=== PATIENT | female | born 1985 | race Caucasian/White ===

== ENCOUNTER 2017-04-04 14:50 | Outpatient (CLI) | payer OTHER | END 2017-04-04 16:10 | disposition home or self-care (01) | LOC: OBT 14:50 → L-D 14:50 → OBT 16:10 | DX: O24.419 Gestational diabetes mellitus in pregnancy, unspecified control (principal); Z3A.34 34 weeks gestation of pregnancy | CPT/HCPCS: 76815; 76818; 82962 ==

== ENCOUNTER 2017-04-16 13:34 | Inpatient (IN) | payer OTHER ==
[2017-04-16] MEDS ORDERED: CARBOPROST 250 MCG INJ IM (14:30)
[2017-04-16] MEDS ORDERED: LIDOCAINE 1% (MPF) 30 ML INJ INJ (14:30)
[2017-04-16] MEDS ORDERED: BUTORPHANOL 2 MG INJ IV (14:30)
[2017-04-16] MEDS ORDERED: METHYLERGONOVINE 0.2 MG INJ IM (14:30)
[2017-04-16] MEDS ORDERED: OXYTOCIN 30 UNITS/LR 500 ML IV ×2 (14:30)
[2017-04-16] MEDS ORDERED: MISOPROSTOL 200 MCG TAB PR (14:30)
[2017-04-16 15:19] LABS: ADD MAN DIFF? NO
[2017-04-16 15:24] LABS: BASOPHILS % 0.1 % (0.0-2.0); EOSINOPHILS % 0.1 % (0.0-7.0); HEMATOCRIT 31.7 % (37.0-47.0); HEMOGLOBIN 10.6 g/dl (12.0-16.0); LYMPHOCYTES # 1.7 10^3/ul (0.8-2.9); LYMPHOCYTES % 22.2 % (15.0-51.0); MEAN CORPUSCULAR HEMOGLOBIN 29.2 pg (29.0-33.0); MEAN CORPUSCULAR HGB CONC 33.4 g/dl (32.0-37.0); MEAN CORPUSCULAR VOLUME 87.3 fl (82.0-101.0); MEAN PLATELET VOLUME 11.1 fl (7.4-10.4); MONOCYTE # 0.5 10^3/ul (0.3-0.9); NEUTROPHIL # 5.6 10^3/ul (1.6-7.5); NEUTROPHILS % 71.3 % (39.0-77.0); PLATELET COUNT 157 10^3/UL (140-415); RED BLOOD COUNT 3.63 10^6/ul (4.20-5.40); RED CELL DISTRIBUTION WIDTH 16.3 % (11.5-14.5)
[2017-04-16 15:24] LABS: WHITE BLOOD COUNT 7.9 10^3/ul (4.8-10.8)
[2017-04-16 15:47] LABS: INR 0.96; PROTIME 12.9 Sec (11.9-14.9)
[2017-04-16 15:48] LABS: PARTIAL THROMBOPLASTIN TIME 25.4 Sec (25.0-35.0)
[2017-04-16 15:49] LABS: GLUCOSE 76 mg/dl (70-220)
[2017-04-16] MEDS: LACTATED RINGER'S 1,000 ML IV ×2 (16:15→22:20)
[2017-04-16 16:21] LABS: HEPATITIS B SURFACE ANTIGEN NEGATIVE (NEGATIVE)
[2017-04-16] MEDS: OXYTOCIN 30 UNITS/LR 500 ML IV (17:56)
[2017-04-17] MEDS: LACTATED RINGER'S 1,000 ML IV ×2 (00:50→02:05)
[2017-04-17] MEDS ORDERED: FENTAnyl 2MCG/ML-ROPIV 0.2% 100 ML (01:38)
[2017-04-17] MEDS ORDERED: PHENYLephrine (100 MCG/ML) 5ML SYG (01:39)
[2017-04-17] MEDS ORDERED: EPHEDrine SULFATE 50 MG/5 ML SYG (01:39)
[2017-04-17] MEDS: FENTAnyl 2MCG/ML-ROPIV 0.2% 100 ML BAG EPI ×2 (02:11→09:49)
[2017-04-17] MEDS ORDERED: ONDANSETRON 4 MG INJ IV ×2 (02:30→17:00)
[2017-04-17] MEDS ORDERED: NALOXONE (0.4 MG/ML) INJ IV (02:30)
[2017-04-17] MEDS: EPHEDrine SULFATE 50 MG/5 ML SYG IV (05:47)
[2017-04-17] MEDS: LACTATED RINGER'S 500 ML IV ×3 (06:40→08:14)
[2017-04-17] MEDS ORDERED: SOD CHLORIDE 0.9% 1,000 ML IV (07:48)
[2017-04-17] MEDS: OXYTOCIN 30 UNITS/LR 500 ML IV ×3 (08:41→16:57)
[2017-04-17] MEDS: DEXTROSE 5%-LR 1,000 ML IV (09:01)
[2017-04-17] MEDS: IBUPROFEN 600 MG TAB PO (14:29)
[2017-04-17] MEDS ORDERED: ACETAMINOPHEN 325 MG TAB PO (17:00)
[2017-04-17] MEDS ORDERED: OXYCODONE/ASPIRIN (4.88/325) TAB PO ×2 (17:00)
[2017-04-17] MEDS ORDERED: HYDROCODONE/APAP (5/325) TAB PO ×2 (17:00)
[2017-04-17] MEDS: BENZOCAINE 20% 56 ML SPRAY TOP (17:37)
[2017-04-17] MEDS: WITCH HAZEL/GLYCERIN PAD PR (17:38)
[2017-04-17] MEDS: LANOLIN 7 GM TUBE TOP (17:38)
[2017-04-17 22:35] LABS: RAPID PLASMA REAGIN NONREACTIVE (NR)
[2017-04-18] MEDS: IBUPROFEN 600 MG TAB PO ×4 (00:16→18:02)
[2017-04-18 08:45] LABS: ADD MAN DIFF? NO
[2017-04-18 08:56] LABS: BASOPHILS % 0.2 % (0.0-2.0); EOSINOPHILS % 0.4 % (0.0-7.0); HEMOGLOBIN 9.8 g/dl (12.0-16.0); LYMPHOCYTES # 1.7 10^3/ul (0.8-2.9); LYMPHOCYTES % 16.8 % (15.0-51.0); MEAN CORPUSCULAR HEMOGLOBIN 29.2 pg (29.0-33.0); MEAN CORPUSCULAR HGB CONC 32.7 g/dl (32.0-37.0); MEAN CORPUSCULAR VOLUME 89.3 fl (82.0-101.0); MEAN PLATELET VOLUME 11.7 fl (7.4-10.4); MONOCYTE # 0.7 10^3/ul (0.3-0.9); MONOCYTES % 6.8 % (0.0-11.0); NEUTROPHIL # 7.8 10^3/ul (1.6-7.5); NEUTROPHILS % 75.4 % (39.0-77.0); PLATELET COUNT 141 10^3/UL (140-415); RED BLOOD COUNT 3.36 10^6/ul (4.20-5.40); RED CELL DISTRIBUTION WIDTH 16.7 % (11.5-14.5)
[2017-04-18 08:56] LABS: WHITE BLOOD COUNT 10.3 10^3/ul (4.8-10.8)
[2017-04-18] MEDS: SENNA/DOCUSATE NA (8.6MG/50MG) TAB PO ×2 (09:14→21:13)
[2017-04-18] MEDS: DIBUCAINE 1% 30 GM OINT PR (18:02)
[2017-04-19] MEDS: IBUPROFEN 600 MG TAB PO ×4 (00:55→18:00)
[2017-04-19] MEDS: SENNA/DOCUSATE NA (8.6MG/50MG) TAB PO (08:51)
[2017-04-19] MEDS: MEASLES,MUMPS,RUBELLA VACCINE INJ SC* (09:00)
[2017-04-19] MEDS: WITCH HAZEL/GLYCERIN PAD PR (12:14)
[2017-04-19] MEDS: BENZOCAINE 20% 56 ML SPRAY TOP (12:15)
[2017-04-19] MEDS: LANOLIN 7 GM TUBE TOP (12:15)
[2017-04-20] MEDS ORDERED: INFLUENZA VIRUS VACCINE 0.5 ML (DISPENSING) IM* (09:00)
== END 2017-04-19 18:30 | disposition home or self-care (01) | DRG 775 ==
LOC: OBT 13:34 → L-D 13:34 → PP1 04-17 16:38 → OBT 14:23 → L-D 14:14
PROVIDERS: Obstetrics & Gynecology
PROC: 3E033VJ Introduction of Other Hormone into Peripheral Vein, Percutaneous Approach (ICD-10-PCS; 2017-04-16)
PROC: 10E0XZZ Delivery of Products of Conception, External Approach (ICD-10-PCS; principal; 2017-04-17)
PROC: 0HQ9XZZ Repair Perineum Skin, External Approach (ICD-10-PCS; 2017-04-17)
DX: O70.0 First degree perineal laceration during delivery (principal); Z37.0 Single live birth; Z3A.40 40 weeks gestation of pregnancy
CPT/HCPCS: 62319; 76815; 76818; 82947; 82962; 85025; 85610; 85730; 86592; 86885; 86900; 86901; 87340

== ENCOUNTER 2017-04-23 17:50 | Emergency (ER) | payer OTHER ==
[2017-04-23] MEDS ORDERED: ONDANSETRON 4 MG INJ IV (20:31)
[2017-04-23] MEDS ORDERED: morphine 4 MG/ML VIAL IV (20:31)
== END 2017-04-23 20:48 | disposition home or self-care (01) ==
LOC: FTE 17:50
DX: O14.95 Unspecified pre-eclampsia, complicating the puerperium (principal); R51 Headache
CPT/HCPCS: 99282; Z7502

== ENCOUNTER 2017-04-23 21:04 | Inpatient (IN) | payer OTHER ==
[2017-04-23 22:01] LABS: ADD MAN DIFF? NO
[2017-04-23 22:03] LABS: BASOPHILS % 0.4 % (0.0-2.0); EOSINOPHILS # 0.1 10^3/ul (0.0-0.5); EOSINOPHILS % 1.2 % (0.0-7.0); HEMATOCRIT 36.1 % (37.0-47.0); HEMOGLOBIN 11.8 g/dl (12.0-16.0); LYMPHOCYTES # 2.1 10^3/ul (0.8-2.9); LYMPHOCYTES % 30.2 % (15.0-51.0); MEAN CORPUSCULAR HEMOGLOBIN 28.7 pg (29.0-33.0); MEAN CORPUSCULAR HGB CONC 32.7 g/dl (32.0-37.0); MEAN CORPUSCULAR VOLUME 87.8 fl (82.0-101.0); MEAN PLATELET VOLUME 10.6 fl (7.4-10.4); MONOCYTE # 0.4 10^3/ul (0.3-0.9); MONOCYTES % 5.6 % (0.0-11.0); NEUTROPHIL # 4.2 10^3/ul (1.6-7.5); NEUTROPHILS % 62.3 % (39.0-77.0); PLATELET COUNT 242 10^3/UL (140-415); RED BLOOD COUNT 4.11 10^6/ul (4.20-5.40); RED CELL DISTRIBUTION WIDTH 15.1 % (11.5-14.5)
[2017-04-23 22:03] LABS: WHITE BLOOD COUNT 6.8 10^3/ul (4.8-10.8)
[2017-04-23] MEDS: ACETAMINOPHEN 500 MG TAB PO (22:13)
[2017-04-23 22:24] LABS: ALANINE AMINOTRANSFERASE 36 IU/L (13-69); ALBUMIN 3.6 g/dl (3.3-4.9); ALBUMIN/GLOBULIN RATIO 1.12; ALKALINE PHOSPHATASE 128 IU/L (42-121); ANION GAP 13 (8-16); ASPARTATE AMINO TRANSFERASE 26 IU/L (15-46); BILIRUBIN,INDIRECT 0.2 mg/dl (0-1.1); BILIRUBIN,TOTAL 0.2 mg/dl (0.2-1.3); BLOOD UREA NITROGEN 11 mg/dl (7-20); CALCIUM 8.7 mg/dl (8.4-10.2); CARBON DIOXIDE 23 mmol/L (21-31); CHLORIDE 108 mmol/L (97-110); GLUCOSE 97 mg/dl (70-220); SODIUM 140 mmol/L (135-144); TOTAL PROTEIN 6.8 g/dl (6.1-8.1); URIC ACID 4.5 mg/dl (3.1-7.9)
[2017-04-23 22:27] LABS: INR 1.07; PT RATIO 1.1
[2017-04-23 22:29] LABS: ADD UMIC YES; UR ASCORBIC ACID NEGATIVE (NEGATIVE); UR BACTERIA FEW /HPF (NONE SEEN); UR BILIRUBIN (Dip) NEGATIVE (NEGATIVE); UR BLOOD (Dip) 3+ mg/dL (NEGATIVE); UR CLARITY CLEAR (CLEAR); UR COLOR YELLOW (YELLOW); UR GLUCOSE (Dip) NEGATIVE (NEGATIVE); UR KETONES (Dip) NEGATIVE (NEGATIVE); UR LEUKOCYTE ESTERASE (Dip) 2+ Leu/ul (NEGATIVE); UR NITRITE (Dip) NEGATIVE (NEGATIVE); UR RBC 14 /HPF (0-5); UR TOTAL PROTEIN (Dip) NEGATIVE (NEGATIVE); UR UROBILINOGEN (Dip) NEGATIVE (NEGATIVE); UR WBC 11 /HPF (0-5)
[2017-04-23 22:33] LABS: PARTIAL THROMBOPLASTIN TIME 29.5 Sec (25.0-35.0)
[2017-04-24] MEDS: OXYCODONE/ACETAMINOPHEN (5/325) TAB PO ×3 (00:20→09:20)
[2017-04-24] MEDS: morphine 2 MG INJ IV (01:09)
[2017-04-24] MEDS: DIAZEPAM 2 MG TAB PO (05:18)
[2017-04-24] MEDS: CEFTRIAXONE 1 GM/50 ML (PMX) 50 ML IVPB (05:21)
[2017-04-24] MEDS: ACETAMINOPHEN 500 MG TAB PO (06:43)
[2017-04-24] MEDS: SOD CHLORIDE 0.9% 100 ML (08:15)
[2017-04-24] MEDS: IOHEXOL 100 ML (08:15)
[2017-04-24] MEDS: KETOROLAC 30 MG INJ IV ×2 (12:12→20:17)
[2017-04-24] MEDS ORDERED: KETOROLAC 30 MG INJ IV (12:30)
[2017-04-24] MEDS: DEXAMETHASONE 10 MG/ML 1 ML INJ IV (14:26)
[2017-04-24] MEDS: METOCLOPRAMIDE 10 MG INJ IV (14:38)
[2017-04-25] MEDS: KETOROLAC 30 MG INJ IV ×2 (02:35→11:38)
[2017-04-25] MEDS ORDERED: METHYLPREDNISOLONE (MEDROL) DOSE PACK PO (13:00)
[2017-04-25] MEDS ORDERED: CYCLOBENZAPRINE 10 MG TAB PO (13:00)
[2017-04-25] MEDS: METHYLPREDNISOLONE 4 MG TAB PO (13:38)
[2017-04-26] MEDS: KETOROLAC 30 MG INJ IV (01:17)
[2017-04-26] MEDS: METHYLPREDNISOLONE 4 MG TAB PO ×2 (08:01→13:09)
[2017-04-26] MEDS: CYCLOBENZAPRINE 10 MG TAB PO (10:07)
[2017-04-26] MEDS ORDERED: METHYLPREDNISOLONE 4 MG TAB PO ×2 (19:05→21:00)
[2017-04-27] MEDS ORDERED: METHYLPREDNISOLONE 4 MG TAB PO (21:00)
== END 2017-04-26 17:25 | disposition home or self-care (01) | DRG 776 ==
LOC: OBT 21:04 → L-D 21:06 → OBT 22:45 → PP1 22:45
DX: O90.89 Other complications of the puerperium, not elsewhere classified (principal); R00.1 Bradycardia, unspecified; R51 Headache; R03.0 Elevated blood-pressure reading, without diagnosis of hypertension
CPT/HCPCS: 70450; 70490; 70498; 70553; 72141; 80053; 81001; 84443; 84560; 85025; 85610; 85730; 87086; 97162